=== PATIENT | male | born 2000 | race Caucasian/White ===

== ENCOUNTER 2022-05-15 16:26 | Inpatient (IN) | payer BC, SELFPAY ==
--- NOTE | 2022-05-15 16:38 | XRR_ITS ---
PROCEDURE INFORMATION: Exam: XR Chest Exam date and time: 05/15/2022 4:51 PM Age: 21 years old Clinical indication: Screening exam; Other screening; Additional info: Psych clearance TECHNIQUE: Imaging protocol: Radiologic exam of the chest. Views: 1 view. COMPARISON: No relevant prior studies available. FINDINGS: Lungs: Unremarkable. No consolidation. Pleural spaces: Unremarkable. No pleural effusion. No pneumothorax. Heart/Mediastinum: Unremarkable. No cardiomegaly. Bones/joints: Unremarkable. XR/XR chest 1V portable [id number] IMPRESSION: No acute findings.
--- NOTE | 2022-05-15 16:39 | ECG_ITS ---
[facility] Test Date: 2022-05-15 Pat Name: Miles Patterson Department: Room: Gender: Male Button Reclaimer: : 2000 Requested By: Thien Hdez Order Number: [id number] Usha MD: Laurence Casas M.D. Measurements Intervals [place] Rate: 62 P: 73 NH: 151 QRS: 81 QRSD: 97 T: 67 QT: 401 QTc: 410 Interpretive Statements SINUS RHYTHM WITH SINUS ARRHYTHMIA No previous ECG available for comparison Electronically Signed On 05-15-2022 20:57:34 CDT by Laurence Casas M.D. [email or web address]
--- NOTE | 2022-05-15 16:42 | ED_ITS ---
HPI - General Adult General: Chief complaint: Psychiatric Symptoms Stated complaint: SI Time Seen by Provider: 05/15/22 16:38 History of Present Illness: HPI: [21]yo patient w/ hx of depression BIBA for worsening depression with SI. No active plan currently. On arrival, the patient is AAOx3 and cooperative with my evaluation. No focal complaints of chest pain, shortness of breath, palpitations, N/V, focal GI/ complaints. Currently denies HI. He reports auditory hallucination. Onset: acute on chronic Duration: ongoing Location: home Severity: severe Associated symptoms: Deny chest pain, dyspnea, nausea, rash, palpitations or vomiting Review of Systems Const: Denies: fever(s) or chills Eyes: Denies: change in vision ENMT: Denies: mouth pain Card: Denies: chest pain or palpitations Resp: Denies: dyspnea or non-productive cough GI: Denies: abdominal pain, nausea, vomiting or diarrhea : Denies: dysuria Musc: Denies: extremity pain Skin/Breast: Denies: rash or new lesions Neuro: Denies: weakness in extremities Psych: Reports: depression, auditory hallucinations and suicidal ideation Parviz/Lymph: Denies: easy bruising PFSH ED PFSH: Medical History Depression with suicidal ideation Family History Mother , jumped out window Suicide Social History Smoking and tobacco status: current some day smoker (THC) Last substance use date: 05/14/22 Last substance use time: 09:00 Physical Exam Const: COMMON NORMALS: alert HENMT: COMMON NORMALS: atraumatic HEAD & SCALP: atraumatic MOUTH: moist mucous membranes not abnormal Eye: COMMON NORMALS: EOMs intact bilaterally and conjunctivae normal CONJ UNCTIVA: Yes conjunctivae normal Neck/C-Spine: COMMON NORMALS: full ROM and supple Resp: COMMON NORMALS: normal respiratory effort and clear to auscultation bilaterally AUSCULTATION: clear to auscultation bilaterally Cardio: COMMON NORMALS: regular rate RATE: regular rate GI: COMMON NORMALS: Soft to palpation and non-tender PALPATION: Yes Soft to palpation Extremity: COMMON NORMALS: full ROM Neuro: SENSORIUM/ORIENTATION: Yes alert MOTOR EXAM: No Abnormal motor strength present and Other motor observations present (no focal motor deficits) Psych: COMMON NORMALS: speech normal SPEECH: Yes normal speech MOOD & AFFECT: Yes depressed mood Course Vital Signs: Vital signs: Vital Signs Temperature 98.0 F 05/15/22 16:45 Pulse Rate 78 05/15/22 16:45 Respiratory Rate 16 05/15/22 16:45 Blood Pressure 131/78 05/15/22 16:45 Pulse Oximetry 97 05/15/22 16:45 MDM - General Adult Medical Decision Making [21]yo patient w/ hx of depression presenting for depression with SI. No active plan. + auditory hallucination. HDS, exam within normal limit Thoughts are linear and organized, and the patient has no VH, or HI. Clinically the patient displays no overt toxidrome; they are well appearing, with low suspicion for toxic ingestion given history and exam. Symptoms unlikely 2/2 anemia, hypothyroidism, infection, or ICH. Patient received 1mg of ativan for anxiety Workup: CBC, CMP, Lipase, salicylate/tylenol, serum ethanol, TSH/free T4, EKG, xr chest, covid antigen, UDS Lab findings: wnl [5:30pm] On reassessment, labs and workup wnl. Patient is hemodynamically stable with no acute medical complaints. Case discussed with psychiatric provider Dr. Bell at [facility] psych inpatient with recommendation for admission. Disposition: admission Lab Data : 05/15/22 16:51 05/15/22 16:51 Radiology Impressions Chest X-Ray 05/15/22 16:38 IMPRESSION: No acute findings. Laboratory Results WBC 13.3 10^3/uL (4.0-10.0) H 05/15/22 16:51 RBC 5.37 10^6/uL (4.1-5.3) H 05/15/22 16:51 Hgb 15.7 g/dL (11.7-16.6) 05/15/22 16:51 Hct 46.0 % (42.0-52.0) 05/15/22 16:51 MCV 85.7 fl (80-94) 05/15/22 16:51 MCH 29.2 pg (28.0-34.0) 05/15/22 16:51 MCHC 34.1 g/dL (30.0-36.0) 05/15/22 16:51 RDW 12.6 % (12.1-15.1) 05/15/22 16:51 Plt Count 372 10^3/cmm (130-400) 05/15/22 16:51 MPV 9.9 fL (7.4-10.4) 05/15/22 16:51 Neut % (Auto) 66.5 % 05/15/22 16:51 Lymph % (Auto) 24.9 % 05/15/22 16:51 [place] % (Auto) 6.6 % 05/15/22 16:51 Eos % (Auto) 1.3 % 05/15/22 16:51 Baso % (Auto) 0.5 % 05/15/22 16:51 Neut # (Auto) 8.86 10^3/uL (1.8-7.7) H 05/15/22 16:51 Lymph # (Auto) 3.3 10^3/uL (0.8-4.8) 05/15/22 16:51 [place] # (Auto) 0.9 10^3/uL (0.2-0.9) 05/15/22 16:51 Eos # (Auto) 0.2 10^3/uL (0.0-0.8) 05/15/22 16:51 Baso # (Auto) 0.1 10^3/uL (0.0-0.1) 05/15/22 16:51 Nucleated RBC % (auto) 0 % 05/15/22 16:51 Nucleated RBCs # 0.0 /100WBC 05/15/22 16:51 Sodium 139 mmol/L (136-145) 05/15/22 16:51 Potassium 3.9 mmol/L (3.5-5.1) 05/15/22 16:51 Chloride 100 mmol/L (98-107) 05/15/22 16:51 Carbon Dioxide 29 mmol/L (22-29) 05/15/22 16:51 Anion Gap 13.9 (5-19) 05/15/22 16:51 BUN 22 mg/dL (6-20) H 05/15/22 16:51 Creatinine 0.8 mg/dL (0.7-1.2) 05/15/22 16:51 GFR Calculation 119.8 mL/min (90-130) 05/15/22 16:51 Glucose 88 mg/dL (65-115) 05/15/22 16:51 Calculated Osmolality 291 mOsm/kg (285-295) 05/15/22 16:51 Calcium 9.4 mg/dL (8.5-10.5) 05/15/22 16:51 Total Bilirubin 1.6 mg/dL (0.15-1.2) H 05/15/22 16:51 AST 25 U/L (0-40) 05/15/22 16:51 ALT 32 U/L (0-41) 05/15/22 16:51 Alkaline Phosphatase 80 IU/L (40-130) 05/15/22 16:51 Total Protein 7.5 g/dL (6.6-8.7) 05/15/22 16:51 Albumin 4.6 g/dL (3.5-5.2) 05/15/22 16:51 Globulin 2.9 g/dL (1.3-4.6) 05/15/22 16:51 Lipase 18 U/L (13-60) 05/15/22 16:51 TSH 0.59 uIU/mL (0.27-4.20) 05/15/22 16:51 Free T4 1.35 ng/dL (0.82-1.77) 05/15/22 16:51 Salicylates < 0.3 mg/dL (3-10) L 05/15/22 16:51 Acetaminophen < 5.0 ug/mL (10-30) L 05/15/22 16:51 Ethyl Alcohol < 10 mg/dL (0-10) 05/15/22 16:51 Discharge Plan Discharge Patient Disposition: Admitted As Inpatient Clinical Impression: Depression with suicidal ideation, Auditory hallucination Condition: Stable Coding Level of Care Code ED Forwarder Operator for Jasong Fwd Exam Comprehensive
[2022-05-15 16:45] VITALS: BP 131/78; PULSE 78; RESP 16; TEMP 36.7; O2SAT 97
[2022-05-15 17:20] LABS: Basophils # 0.1 10^3/uL (0.0-0.1); Basophils % 0.5 %; Eosinophils # 0.2 10^3/uL (0.0-0.8); Eosinophils % 1.3 %; Hemoglobin 15.7 g/dL (11.7-16.6); Lymphocytes # 3.3 10^3/uL (0.8-4.8); Lymphocytes % 24.9 %; Mean Corpuscular HGB Conc 34.1 g/dL (30.0-36.0); Mean Corpuscular Hemoglobin 29.2 pg (28.0-34.0); Mean Corpuscular Volume 85.7 fl (80-94); Mean Platelet Volume 9.9 fL (7.4-10.4); Monocytes # 0.9 10^3/uL (0.2-0.9); Monocytes % 6.6 %; Neutrophils # 8.86 10^3/uL (1.8-7.7); Neutrophils % 66.5 %; Nucleated Red Blood Cells % 0 %; Platelet Count 372 10^3/cmm (130-400); Red Blood Count 5.37 10^6/uL (4.1-5.3); Red Cell Distribution Width 12.6 % (12.1-15.1); White Blood Count 13.3 10^3/uL (4.0-10.0)
[2022-05-15] MEDS: LORazepam 2 mg Tablet PO (17:25)
[2022-05-15 17:44] LABS: Alanine Aminotransferase 32 U/L (0-41); Albumin Level 4.6 g/dL (3.5-5.2); Alkaline Phosphatase 80 IU/L (40-130); Anion Gap 13.9 (5-19); Aspartate Amino Transferase 25 U/L (0-40); Blood Urea Nitrogen 22 mg/dL (6-20); Calcium 9.4 mg/dL (8.5-10.5); Carbon Dioxide 29 mmol/L (22-29); Chloride 100 mmol/L (98-107); Free T4 Free Thyroxine 1.35 ng/dL (0.82-1.77); Globulin 2.9 g/dL (1.3-4.6); Glomerular Filtration Rate 119.8 mL/min (90-130); Glucose 88 mg/dL (65-115); Lipase 18 U/L (13-60); Osmolality Calculated 291 mOsm/kg (285-295); Potassium 3.9 mmol/L (3.5-5.1); Sodium 139 mmol/L (136-145); Thyroid Stimulating Hormone 0.59 uIU/mL (0.27-4.20); Total Bilirubin 1.6 mg/dL (0.15-1.2); Total Protein 7.5 g/dL (6.6-8.7)
[2022-05-15 17:45] LABS: Acetaminophen < 5.0 ug/mL (10-30); Alcohol Level < 10 mg/dL (0-10); Salicylate < 0.3 mg/dL (3-10)
--- NOTE | 2022-05-15 18:30 | PC.NURSE ---
REPORT GIVEN TO ADY GUZMAN IN ICU.
[2022-05-15 18:31] LABS: SARS Covid-2 Antigen Negative (Negative)
[2022-05-15 18:46] VITALS: BP 120/77; PULSE 66; RESP 18; TEMP 36.6; O2SAT 100
[2022-05-15 18:49] LABS: Amphetamines Screen Urine Positive (Negative); Barbiturates Screen Urine Negative (Negative); Benzodiazepines Screen Urine Negative (Negative); Cocaine Screen Urine Negative (Negative); Opiate Screen Urine Negative (Negative); PCP Screen Urine Negative (Negative); THC Screen Urine Positive (Negative)
[2022-05-15 19:53] VITALS: BP 120/77; PULSE 66; RESP 18; TEMP 36.6; O2SAT 100
[2022-05-15] MEDS: hyDROXYzine 25 mg Capsule 50 MG PO (20:40)
[2022-05-15] MEDS: nicotine 2 mg Gum BUCCAL (20:40)
[2022-05-15] MEDS: trazodone 50 mg Tablet PO (20:40)
--- NOTE | 2022-05-15 20:40 | PC.NURSE ---
Pt requested medicines to help him sleep and for anxiety. Trazodone 50 mg po and Visteril 50mg po given. Will continue with Q15 minute checks.
--- NOTE | 2022-05-15 21:39 | PC.NURSE ---
Pt in room resting quietly with both eyes closed at this time.
[2022-05-16 06:00] VITALS: BP 93/57; PULSE 67; RESP 18; TEMP 36.6; O2SAT 99
--- NOTE | 2022-05-16 08:39 | W.PM.NPUH&PS ---
Providers/Chief Complaint Admitting Physician: Juan Bell MD Chief Complaint: SI HPI NPU History of Present Illness Miles Patterson is a 21 year old male who was admitted to the MPU after he had shown up in the emergency room stating that he was suicidal with a plan to run into traffic. He reports increased depression over the last 2 to 3 weeks with increasing suicidal thoughts diminished energy, feelings of hopelessness low motivation and depressed mood throughout the day. He reports having no new stressors on admission. He reports that his girlfriend who he lives with had thought that he needed more help. 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 He did not endorse auditory hallucinations and reports that he has had more periods of depression when he is in withdrawal off his methamphetamine. Patient denied any other illicit drug use or alcohol use. He does report a history of repeated problems with avoiding particular places and increased depressed mood that is related to the patient having apparently witnessed the completed suicide of his mother approximately 5 years ago. He reports that he often has flashbacks and nightmares regarding the event. He reports that he often has periods of numbness and feelings of hopelessness regarding the situation. He did not endorse any symptoms suggestive of shivani. He did not endorse any clear evidence of paranoia. Past psychiatric history: Patient has no previous history of inpatient or outpatient psychiatric treatment. He does report a history of inpatient substance abuse treatment for a few months at [facility] for his methamphetamine use. Medical history: None reported surgeries: None medications on admission: None; allergies: he has no known drug allergies Family Hx: bipolar disorder-completed suicide mother Social History: The patient was born in [place]. he reports having received learning support throughout elementary and middle school. He reports a history of witnessing the of his biological mother 5 years ago. He reports that he was raised by his biological parents. He reports dropping out of high school in the 10th grade. He reports that he is not a father and is currently living with his girlfriend and has never been . 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 He did not endorse any history of sexual or physical abuse. Substance abuse history: He reports significant methamphetamine use nearly every day for over 6 years. He minimized any use of any other illicit substances or alcohol. He denies any current use of marijuana. Meds NPU Home Medications Medication Instructions Recorded Confirmed Last Taken Type No Known Home Medications 05/15/22 05/15/22 Unknown History Allergies Allergy/AdvReac Type Severity Reaction Status Date / Time No Known Allergies Allergy Unverified 05/15/22 15:11 PFSH NPU PFSH: Medical History Depression with suicidal ideation Family History Mother , jumped out window Suicide Social History Smoking and tobacco status: current some day smoker (THC) Last substance use date: 05/14/22 Last substance use time: 09:00 Mental Status Exam MSE Comments: He is a casually dressed white male who appeared very tired and difficult to arouse initially. He was able to answer basic questions in a linear and logical fashion. He reported his mood as depressed. His affect was mood congruent and restricted in range. He acknowledged having suicidal thoughts but no active plan at this time. He did not have any homicidal ideation. He did not appear to be responding to internal stimuli. There was no clear evidence of any delusional thinking at this time. He was alert and oriented to place and situation and year but not month or date. His insight appeared poor his judgment appeared poor there was no evidence of any abnormal involuntary motor movements tics or tremors appreciated. Vitals/I&O/Wt Last Vital Signs Temp 98 F 05/16/22 06:00 Pulse 67 05/16/22 06:00 Resp 18 05/16/22 06:00 BP 93/57 05/16/22 06:00 Pulse Ox 99 05/16/22 06:00 Weight last 48 hrs Weight 79.379 kg Data NPU : 05/15/22 16:51 05/15/22 16:51 A&P Assessment and plan (1) Depression with suicidal ideation: Status: Acute (2) History of methamphetamine use: Status: Acute (3) PTSD (post-traumatic stress disorder): Status: Acute (4) Personal history of nonsuicidal self-harm: Status: Acute Plan 5. TO-15 minute med checks, Attempt to gather collateral information from family engage patient in milieu and group therapy Patient agreeable to starting antidepressant at this time, will initiate zoloft 25mg to target anxiety and depression. Recommend sober living treatment at the highest level of care to which the patient is willing to commit. Involuntary Hold Information 96 Hour Hold: 96 Hour Involuntary Admission: No Attestations NPU Medical Necessity Statement*: Inpatient hospitalization is medically necessary and the clinically appropriate intervention at this time with patient expected to be here for at least 2 midnights and likely length of stay 4-6 days. Coding Level of Care Code New Pt Acute Immigration Manager for Chg Fwd Patient Type New History Problem Focused Exam Problem Focused Medical Decision Making Straight Forward Diagnoses Depression with suicidal ideation F32.A; R45.851 History of methamphetamine use Z87.898 PTSD (post-traumatic stress disorder) F43.10 Personal history of nonsuicidal self-harm Z91.52
[2022-05-16] MEDS: nicotine 2 mg Gum BUCCAL (10:10)
[2022-05-16] MEDS: acetaminophen 325 mg Tablet 650 MG PO (10:10)
[2022-05-16] MEDS: sertraline 50 mg Tablet 25 MG PO (10:14)
[2022-05-16] MEDS: nicotine 21 mg Patch 1 PATCH TRANSDERMA (12:01)
[2022-05-16 14:00] VITALS: BP 115/77; PULSE 70; RESP 16; O2SAT 99
[2022-05-16 19:58] VITALS: BP 108/62; PULSE 84; RESP 17; TEMP 36.5; O2SAT 100
[2022-05-17 06:00] VITALS: BP 105/67; PULSE 64; RESP 16; TEMP 36.6; O2SAT 99
[2022-05-17] MEDS: sertraline 50 mg Tablet 25 MG PO (09:22)
[2022-05-17] MEDS: nicotine 21 mg Patch 1 PATCH TRANSDERMA ×2 (09:22→12:00)
--- NOTE | 2022-05-17 12:07 | W.PM.NPUPNS ---
Subjective NPU Subjective: Patient is a 21 year old white male with depression, suicidal ideation, ptsd, admitted with worsening mood, continued feelings of sadness, and intermittent suicidal ideation, nightmares continue, reports some difficulty with feeling paranoid and distrustful of others intentions. No aggression noted, Patient reports feeling hopeless, low energy and reports recurring visions of seeing mother who hanged herself from a tree. Mental Status Exam MSE Comments: He is a casually dressed white male who appeared very tired and difficult to arouse again today. ? He was able to answer basic questions in a linear and logical fashion.? He reported his mood as depressed.? His affect was mood congruent and restricted in range.? He acknowledged having suicidal thoughts but no active plan at this time.? He did not have any homicidal ideation.? He did not appear to be responding to internal stimuli.? There was no clear evidence of any delusional thinking at this time.? He was alert and oriented x3 today. His insight appeared poor. his judgment appeared poor there was no evidence of any abnormal involuntary motor movements tics or tremors appreciated. Vitals/I&O/Wt Last Vital Signs Temp 98.1 F 05/17/22 14:00 Pulse 59 L 05/17/22 14:00 Resp 20 H 05/17/22 14:00 BP 128/81 05/17/22 14:00 Pulse Ox 99 05/17/22 14:00 Weight last 48 hrs Weight 79.379 kg Data NPU : 05/15/22 16:51 05/15/22 16:51 A&P Assessment and plan (1) PTSD (post-traumatic stress disorder): Status: Acute (2) Depression with suicidal ideation: Status: Acute (3) Auditory hallucination: Status: Acute (4) History of methamphetamine use: Status: Acute (5) Personal history of nonsuicidal self-harm: Status: Acute Plan TO-15 minute med checks, engage patient in milieu, individual and group therapy Patient agreeable to starting antidepressant at this time, will increase zoloft 50mg to target anxiety and depression. ?? Recommend sober living treatment at the highest level of care to which the patient is willing to commit. Involuntary Hold Information 96 Hour Hold: 96 Hour Involuntary Admission: No Attestations NPU Medical Necessity Statement*: Inpatient hospitalization is medically necessary and the clinically appropriate intervention at this time with patient expected to be here for 2-3 days.? Coding Level of Care Code Established Pt Acute Optical Effects Camera Operator for Chg Fwd Patient Type Established History Problem Focused Exam Problem Focused Medical Decision Making Straight Forward Diagnoses PTSD (post-traumatic stress disorder) F43.10 Depression with suicidal ideation F32.A; R45.851 Auditory hallucination R44.0 History of methamphetamine use Z87.898 Personal history of nonsuicidal self-harm Z91.52
[2022-05-17 14:00] VITALS: BP 128/81; PULSE 59; RESP 20; TEMP 36.7; O2SAT 99
[2022-05-17 20:09] VITALS: BP 110/64; PULSE 66; RESP 20; O2SAT 100
[2022-05-17] MEDS: trazodone 50 mg Tablet PO (21:18)
[2022-05-18 06:00] VITALS: BP 102/53; PULSE 66; RESP 16; TEMP 36.8; O2SAT 99
[2022-05-18] MEDS: sertraline 50 mg Tablet PO (08:08)
[2022-05-18] MEDS: nicotine 2 mg Gum BUCCAL ×3 (11:49→19:22)
--- NOTE | 2022-05-18 13:56 | P.NPUPN_ITS ---
Subjective NPU Subjective: Patient is a 21 year old white male with depression, suicidal ideation, ptsd, admitted with worsening mood, continued feelings of sadness, and intermittent suicidal ideation, nightmares continue, reports some difficulty with feeling paranoid and distrustful of others intentions.? No aggression noted, Patient reports feeling hopeless, low energy and reports recurring visions of seeing mother who hanged herself from a tree. He reports feeling better today. He reports no side effects from medication, he has been participating more in groups. Mental Status Exam MSE Comments: He is a casually dressed white male who appeared more alert and communicative. ? He was able to answer basic questions in a linear and logical fashion.? He reported his mood as better ? His affect remained restrictive and mood congruent. ? He acknowledged having suicidal thoughts but no active plan at this time.? He did not have any homicidal ideation.? He did not appear to be responding to internal stimuli.? There was no clear evidence of any delusional thinking at this time.? He was alert and oriented x3 today. ? His insight appeared poor.? his judgment appeared poor there was no evidence of any abnormal involuntary motor movements tics or tremors appreciated. Vitals/I&O/Wt Last Vital Signs Temp 98.4 F 05/18/22 14:00 Pulse 84 05/18/22 14:00 Resp 20 H 05/18/22 14:00 BP 128/84 05/18/22 14:00 Pulse Ox 96 05/18/22 14:00 Data NPU : 05/15/22 16:51 05/15/22 16:51 A&P Assessment and plan (1) PTSD (post-traumatic stress disorder): Status: Acute (2) Depression with suicidal ideation: Status: Acute (3) Auditory hallucination: Status: Acute (4) History of methamphetamine use: Status: Acute (5) Personal history of nonsuicidal self-harm: Status: Acute (6) Excessive anger: Status: Acute (7) Anxiety: Status: Acute (8) Depression: Status: Acute (9) Passive suicidal ideations: Status: Acute Plan TO-15 minute med checks, engage patient in milieu, individual and group therapy Patient agreeable to starting antidepressant at this time, will increase? zoloft 75mg to target anxiety and depression. Recommend sober living treatment at the highest level of care to which the patient is willing to commit. Involuntary Hold Information 96 Hour Hold: 96 Hour Involuntary Admission: No Attestations NPU Medical Necessity Statement*: Inpatient hospitalization is medically necessary and the clinically appropriate intervention at this time with patient expected to be here for 2-3 days.? Coding Level of Care Code Established Pt Acute Implementation Coordinator for Chg Fwd Patient Type Established History Problem Focused Exam Problem Focused Medical Decision Making Straight Forward Diagnoses PTSD (post-traumatic stress disorder) F43.10 Depression with suicidal ideation F32.A; R45.851 Auditory hallucination R44.0 History of methamphetamine use Z87.898 Personal history of nonsuicidal self-harm Z91.52 Excessive anger R45.4 Anxiety F41.9 Depression F32.A Passive suicidal ideations R45.851
[2022-05-18 14:00] VITALS: BP 128/84; PULSE 84; RESP 20; TEMP 36.9; O2SAT 96
[2022-05-18 20:05] VITALS: BP 129/65; PULSE 86; RESP 16; TEMP 36.7; O2SAT 96
[2022-05-18] MEDS: trazodone 50 mg Tablet PO (21:00)
[2022-05-19 06:00] VITALS: BP 110/65; PULSE 64; RESP 15; TEMP 36.6; O2SAT 98
[2022-05-19] MEDS: sertraline 50 mg Tablet 75 MG PO (08:43)
[2022-05-19] MEDS: nicotine 2 mg Gum BUCCAL ×5 (11:13→21:33)
[2022-05-19 14:00] VITALS: BP 113/72; PULSE 80; RESP 20; TEMP 36.9; O2SAT 98
--- NOTE | 2022-05-19 14:33 | W.PM.NPUPNS ---
Subjective NPU Subjective: Patient is a 21 year old white male with depression, suicidal ideation, ptsd, admitted with worsening mood, continued feelings of sadness, and intermittent suicidal ideation. He reports feeling better, not having intense visions of his mother's hanging, no nightmares, improved sleep and reports improved mood. He reports less hopelessness and reports increased appetite with no side effects yet reported from zoloft. Mental Status Exam MSE Comments: He is casually dressed white male who appeared more alert and communicative. ? ? He was able to answer basic questions in a linear and logical fashion.? He reported his mood as okay. ? His affect did appear brighter. ? ? He acknowledged having suicidal thoughts but no active plan at this time.? He did not have any homicidal ideation.? He did not appear to be responding to internal stimuli.? There was no clear evidence of any delusional thinking at this time.? He was alert and oriented x3 today. ? His insight appeared improved. his judgment was guarded. there was no evidence of any abnormal involuntary motor movements tics or tremors appreciated. Vitals/I&O/Wt Last Vital Signs Temp 98.4 F 05/19/22 14:00 Pulse 80 05/19/22 14:00 Resp 20 H 05/19/22 14:00 BP 113/72 05/19/22 14:00 Pulse Ox 98 05/19/22 14:00 Data NPU : 05/15/22 16:51 05/15/22 16:51 A&P Assessment and plan (1) PTSD (post-traumatic stress disorder): Status: Acute (2) Depression with suicidal ideation: Status: Acute (3) Auditory hallucination: Status: Acute (4) History of methamphetamine use: Status: Acute Plan Plan TO-15 minute med checks, engage patient in milieu, individual and group therapy Will increase? zoloft 100mg to target anxiety and depression. Recommend sober living treatment at the highest level of care to which the patient is willing to commit. Involuntary Hold Information 96 Hour Hold: 96 Hour Involuntary Admission: No Attestations NPU Medical Necessity Statement*: Inpatient hospitalization is medically necessary and the clinically appropriate intervention at this time with patient expected to be here for 2-3 days.? Coding Level of Care Code Established Pt Acute Dialysis Equipment Technician for [place] Patient Type Established History Problem Focused Exam Problem Focused Medical Decision Making Straight Forward Diagnoses PTSD (post-traumatic stress disorder) F43.10 Depression with suicidal ideation F32.A; R45.851 Auditory hallucination R44.0 History of methamphetamine use Z87.898
[2022-05-19] MEDS: trazodone 50 mg Tablet PO (20:49)
[2022-05-19 22:00] VITALS: BP 127/78; PULSE 58; RESP 17; O2SAT 100
[2022-05-20 06:00] VITALS: BP 109/64; PULSE 72; RESP 17; TEMP 36.3; O2SAT 98
--- NOTE | 2022-05-20 08:45 | W.PM.NPUPNS ---
Subjective NPU Subjective: Patient is a 21 year old white male with depression, suicidal ideation, ptsd, admitted with worsening mood, continued feelings of sadness, and intermittent suicidal ideation.?Patient reports feeling better. No side effects from his medication. He reports returning to live at home when he is discharge. Reports improved sleep and reports improved concentration. Patient denies feelings of hopelessness. Patient reports no suicidal thoughts and reports being better able to manage depression currently. Mental Status Exam MSE Comments: He is casually dressed white male who appeared more alert and communicative. ? ? Mood described as better. Affect was brighter. ? ? He acknowledged having suicidal thoughts but no active plan at this time.? He did not have any homicidal ideation.? He did not appear to be responding to internal stimuli.? There was no clear evidence of any delusional thinking at this time.? He was alert and oriented x3 today. ? His insight appeared improved. his judgment was guarded. ? There was no evidence of any abnormal involuntary motor movements tics or tremors appreciated. No evidence of delusional thinking. Vitals/I&O/Wt Last Vital Signs Temp 97.8 F 05/20/22 20:47 Pulse 67 05/20/22 20:47 Resp 16 05/20/22 20:47 BP 145/87 05/20/22 20:47 Pulse Ox 98 05/20/22 20:47 Weight last 48 hrs Weight 78.925 kg Data NPU : 05/15/22 16:51 05/15/22 16:51 A&P Assessment and plan (1) PTSD (post-traumatic stress disorder): Status: Acute (2) Depression with suicidal ideation: Status: Acute (3) Auditory hallucination: Status: Acute (4) History of methamphetamine use: Status: Acute (5) Passive suicidal ideations: Status: Acute Plan Plan TO-15 minute med checks, engage patient in milieu, individual and group therapy zoloft 100mg to target anxiety and depression. Recommend sober living treatment at the highest level of care to which the patient is willing to commit. Likely discharge tommorow. Involuntary Hold Information 96 Hour Hold: 96 Hour Involuntary Admission: No Attestations NPU Medical Necessity Statement*: Inpatient hospitalization is medically necessary and the clinically appropriate intervention at this time with patient expected to be here for 1-2 days.? Coding Level of Care Code Established Pt Acute [employer] [place] Patient Type Established History Problem Focused Exam Problem Focused Medical Decision Making Straight Forward Diagnoses PTSD (post-traumatic stress disorder) F43.10 Depression with suicidal ideation F32.A; R45.851 Auditory hallucination R44.0 History of methamphetamine use Z87.898 Passive suicidal ideations R45.851
[2022-05-20] MEDS: sertraline 100 mg Tablet PO (09:29)
[2022-05-20] MEDS: nicotine 2 mg Gum BUCCAL (09:29)
[2022-05-20] MEDS: nicotine 21 mg Patch 1 PATCH TRANSDERMA (11:34)
[2022-05-20 14:00] VITALS: BP 94/61; PULSE 66; RESP 16; TEMP 36.8; O2SAT 98
[2022-05-20] MEDS: trazodone 50 mg Tablet PO (20:07)
[2022-05-20] MEDS: hyDROXYzine 25 mg Capsule 50 MG PO (20:07)
[2022-05-20 20:47] VITALS: BP 145/87; PULSE 67; RESP 16; TEMP 36.6; O2SAT 98
[2022-05-21 06:00] VITALS: BP 110/69; PULSE 77; RESP 16; TEMP 36.6; O2SAT 96
[2022-05-21] MEDS: nicotine 21 mg Patch 1 PATCH TRANSDERMA (08:26)
[2022-05-21] MEDS: sertraline 100 mg Tablet PO (08:26)
[2022-05-21 10:47] VITALS: BP 110/69; PULSE 77; RESP 16; TEMP 36.6; O2SAT 96
[2022-05-21] MEDS: nicotine 2 mg Gum BUCCAL (11:23)
--- NOTE | 2022-05-21 12:31 | P.NPUDS_ITS ---
Diagnoses at Discharge Discharge Diagnosis (1) PTSD (post-traumatic stress disorder): Status: Acute (2) Depression with suicidal ideation: Status: Resolved (3) Auditory hallucination: Status: Acute (4) History of methamphetamine use: Status: Acute (5) Passive suicidal ideations: Status: Resolved Reason for Visit Reason for Visit: SI Brief History: History of Present Illness Miles Patterson is a 21 year old male who was admitted to the [facility] after he had shown up in the emergency room stating that he was suicidal with a plan to run into traffic. He reports increased depression over the last 2 to 3 weeks with increasing suicidal thoughts diminished energy, feelings of hopelessness low motivation and depressed mood throughout the day. He reports having no new stressors on admission. He reports that his girlfriend who he lives with had thought that he needed more help. 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 He did not endorse auditory hallucinations and reports that he has had more periods of depression when he is in withdrawal off his methamphetamine. Patient denied any other illicit drug use or alcohol use. He does report a history of repeated problems with avoiding particular places and increased depressed mood that is related to the patient having apparently witnessed the completed suicide of his mother approximately 5 years ago. He reports that he often has flashbacks and nightmares regarding the event. He reports that he often has periods of numbness and feelings of hopelessness regarding the situation. He did not endorse any symptoms suggestive of shivani. He did not endorse any clear evidence of paranoia. Past psychiatric history: Patient has no previous history of inpatient or outpatient psychiatric treatment. He does report a history of inpatient substance abuse treatment for a few months at [facility] for his methamphetamine use. Medical history: None reported surgeries: None medications on admission: None; allergies: he has no known drug allergies Family Hx: bipolar disorder-completed suicide mother Social History: The patient was born in [place]. he reports having received learning support throughout elementary and middle school. He reports a history of witnessing the of his biological mother 5 years ago. He reports that he was raised by his biological parents. He reports dropping out of high school in the 10th grade. He reports that he is not a father and is currently living with his girlfriend and has never been . 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 He did not endorse any history of sexual or physical abuse. Substance abuse history: He reports significant methamphetamine use nearly every day for over 6 years. He minimized any use of any other illicit substances or alcohol. He denies any current use of marijuana. Hospital Course Hospital Course He quickly acclimated to the individual, group and milieu therapies provided. He was started on Zoloft which was titrated to 100 mg p.o. daily and he was given a dose of this marked input. He worked with the treatment team and social workers to get appropriate follow-up after discharge. He was able to contract for safety outside of the hospital prior to discharge. During the hospitalization, patient had routine laboratory studies which were within normal limits except for few outliers. Additionally there was a general medical evaluation which was also within normal limits and revealed no new acute processes. Discharge Summary: At the time of discharge, he denied psychosis or lethality. Mood and anxiety were well managed. Patient endorsed a plan to avoid all drugs of abuse and follow-up with the aftercare recommendations of the treatment team. Patient was evaluated and deemed to be absent credible lethality, and had achieved the maximum benefit from an inpatient hospitalization, so was discharged. Involuntary Hold Information 96 Hour Hold: 96 Hour Involuntary Admission: No Mental Status Exam MSE Comments: This is a slender white male in hospital scrubs with adequate, grooming and eye contact. No abnormal movements. Cooperative with exam in no acute distress. Speech was normal rate and volume. Mood described as pretty good, affect congruent. Thought process organized, thought content: patient denies suicidal or homicidal ideation, there were no delusions reported or noted, he denied any auditory or visual hallucinations. Attention and concentration were intact and memory appeared reliable but none were formally tested. He is alert and oriented times three. Insight and judgment appeared fair and impulse control appeared fair Discharge Data Studies Completed and Pending: Completed Studies During Hospitalization Category Date Time Status XR chest 1V kami ble [id number] Stat Exams 05/15/22 16:38 Completed Radiology Impressions Chest X-Ray 05/15/22 16:38 IMPRESSION: No acute findings. Laboratory Results WBC 13.3 10^3/uL (4.0 -10.0) H 05/15/22 16:51 RBC 5.37 10^6/uL (4.1 -5.3) H 05/15/22 16:51 Hgb 15.7 g/dL (11.7-1 6.6) 05/15/22 16:51 Hct 46.0 % (42.0-52.0 ) 05/15/22 16:51 MCV 85.7 fl (80-94) 05/15/22 16:51 MCH 29.2 pg (28.0-34. 0) 05/15/22 16:51 MCHC 34.1 g/dL (30.0-3 6.0) 05/15/22 16:51 RDW 12.6 % (12.1-15.1 ) 05/15/22 16:51 Plt Count 372 10^3/cmm (130 -400) 05/15/22 16:51 MPV 9.9 fL (7.4-10.4) 05/15/22 16:51 Neut % (Auto) 66.5 % 05/15/22 16:51 Lymph % (Auto) 24.9 % 05/15/22 16:51 Harney % (Auto) 6.6 % 05/15/22 16:51 Eos % (Auto) 1.3 % 05/15/22 16:51 Baso % (Auto) 0.5 % 05/15/22 16:51 Neut # (Auto) 8.86 10^3/uL (1.8 -7.7) H 05/15/22 16:51 Lymph # (Auto) 3.3 10^3/uL (0.8- 4.8) 05/15/22 16:51 Harney # (Auto) 0.9 10^3/uL (0.2- 0.9) 05/15/22 16:51 Eos # (Auto) 0.2 10^3/uL (0.0- 0.8) 05/15/22 16:51 Baso # (Auto) 0.1 10^3/uL (0.0- 0.1) 05/15/22 16:51 Nucleated RBC % (a uto) 0 % 05/15/22 16:51 Nucleated RBCs # 0.0 /100WBC 05/15/22 16:51 Sodium 139 mmol/L (136-1 45) 05/15/22 16:51 Potassium 3.9 mmol/L (3.5-5 .1) 05/15/22 16:51 Chloride 100 mmol/L (98-10 7) 05/15/22 16:51 Carbon Dioxide 29 mmol/L (22-29) 05/15/22 16:51 Anion Gap 13.9 (5-19) 05/15/22 16:51 BUN 22 mg/dL (6-20) H 05/15/22 16:51 Creatinine 0.8 mg/dL (0.7-1. 2) 05/15/22 16:51 GFR Calculation 119.8 mL/min (90- 130) 05/15/22 16:51 Glucose 88 mg/dL (65-115) 05/15/22 16:51 Calculated Osmolal ity 291 mOsm/kg (285- 295) 05/15/22 16:51 Calcium 9.4 mg/dL (8.5-10 .5) 05/15/22 16:51 Total Bilirubin 1.6 mg/dL (0.15-1 .2) H 05/15/22 16:51 AST 25 U/L (0-40) 05/15/22 16:51 ALT 32 U/L (0-41) 05/15/22 16:51 Alkaline Phosphata se 80 IU/L (40-130) 05/15/22 16:51 Total Protein 7.5 g/dL (6.6-8.7 ) 05/15/22 16:51 Albumin 4.6 g/dL (3.5-5.2 ) 05/15/22 16:51 Globulin 2.9 g/dL (1.3-4.6 ) 05/15/22 16:51 Lipase 18 U/L (13-60) 05/15/22 16:51 TSH 0.59 uIU/mL (0.27 -4.20) 05/15/22 16:51 Free T4 1.35 ng/dL (0.82- 1.77) 05/15/22 16:51 Salicylates < 0.3 mg/dL (3-10 ) L 05/15/22 16:51 Urine Opiates Scre en Negative ng/mL (N egative) 05/15/22 16:50 Acetaminophen < 5.0 ug/mL (10-3 0) L 05/15/22 16:51 Ur Barbiturates Sc reen Negative ng/mL (N egative) 05/15/22 16:50 Ur Phencyclidine S crn Negative ng/mL (N egative) 05/15/22 16:50 Ur Amphetamines Sc reen Positive ng/mL (N egative) H 05/15/22 16:50 U Benzodiazepines Scrn Negative ng/mL (N egative) 05/15/22 16:50 Urine Cocaine Scre en Negative ng/mL (N egative) 05/15/22 16:50 U Marijuana (THC) Screen Positive ng/mL (N egative) H 05/15/22 16:50 Ethyl Alcohol < 10 mg/dL (0-10) 05/15/22 16:51 SARS-CoV-2 Ag (Rap id) Negative (Negati ve) 05/15/22 16:50 Vitals: Last Vital Signs Temp 97.8 F 05/21/22 10:47 Pulse 77 05/21/22 10:47 Resp 16 05/21/22 10:47 BP 110/69 05/21/22 10:47 Pulse Ox 96 05/21/22 10:47 Discharge Plan Discharge Patient Disposition: Home Condition: Stable Prescriptions: New trazodone 50 mg Tablet 50 mg PO BEDTIME PRN (Reason: Insomnia) 30 Days Qty: 30 1RF sertraline 100 mg Tablet 100 mg PO DAILY 30 Days Qty: 30 1RF No Action No Known Home Medications 0RF Discharge Orders: Discharge Order (Routine); Ordered 05/21/22 Ordered By: Keith Staples Referrals: [facility] [Other] [facility] [place] [facility] [Outside] - 05/25/22 9:30 am (Initial assessment) Discharge Diet: Regular Discharge Activity: Resume usual activity Patient Instructions: Trazodone (By mouth) (Desyrel, Desyrel Dividose, Oleptro, Trazamine), Sertraline (By mouth) (Zoloft), Methamphetamine Abuse, Depression (DC), Post Traumatic Stress Disorder (DC), Anxiety (DC), Hallucinations (ED), Suicide Prevention (DC), Opioid Safety Discharge Attestations NPU Time Spent in Discharge Care*: less than 30 min Specific Discharge Activities: Specific discharge activities: educating patient, discussing with comp field case manager/social workers/dc planners, documenting/other paperwork and evaluating patient/reviewing data Coding Level of Care Code Acute Chg FW DC note Diagnoses PTSD (post-traumatic stress disorder) F43.10 Depression with suicidal ideation F32.A; R45.851 Auditory hallucination R44.0 History of methamphetamine use Z87.898 Passive suicidal ideations R45.851
[2022-05-21 12:33] VITALS: BP 110/69; PULSE 77; RESP 16; TEMP 36.6; O2SAT 96
--- NOTE | 2022-05-21 13:17 | PC.NURSE ---
Discharge Discharge information reviewed with pt, including meds, follow up, and MOCARS number. Pt verbalized understanding. All questions answered and support verbalized. Pt left at 1318 with belongings.
== END 2022-05-21 13:20 | disposition home or self-care (01) | DRG 881 ==
LOC: ER 18:03 → NP 18:10
PROVIDERS: Admitting Provider Psychiatry & Neurology Psychiatry; Emergency Provider Emergency Medicine; Visit Provider Psychiatry & Neurology Psychiatry
DX: F32.A Depression, unspecified (principal); R45.851 Suicidal ideations; F17.200 Nicotine dependence, unspecified, uncomplicated; Z81.8 Family history of other mental and behavioral disorders; F15.90 Other stimulant use, unspecified, uncomplicated; F43.10 Post-traumatic stress disorder, unspecified
CPT/HCPCS: 71045; 80053; 80306; 80307; 83690; 84439; 84443; 85025; 87426; 93005; 97150; 97165; 99285